=== PATIENT | female | born 1975 | race Caucasian/White ===

== ENCOUNTER 2019-10-03 07:28 | Outpatient (CLI) | payer OTHER, BC, SELFPAY ==
--- NOTE | ~2019-10-03 | MM_ITS ---
EXAMINATION: MM screening [facility] BI w himanshu HISTORY: Screening mammogram TECHNIQUE: Craniocaudal and mediolateral oblique 3-D tomosynthesis images were obtained and synthetic 2-D images were generated. CAD analysis was submitted and interpreted. COMPARISON: 09/21/2018, 09/08/2017, 09/01/2016 bilateral digital screening mammogram examinations BREAST PARENCHYMAL COMPOSITION: There are scattered areas of fibroglandular density. FINDINGS: There is no evidence of suspicious mass, calcification, or architectural distortion to sugg est malignancy in either breast. There has been no suspicious interval change. IMPRESSION: 1. No mammographic evidence of malignancy. 2. Recommend routine screening mammography in one year. BI-RADS Category 1: Negative Reviewed, dictated and finalized at location A.
== END 2019-10-03 07:29 | disposition home or self-care (01) ==
LOC: ANHIMG 07:31
PROVIDERS: PCP Internal Medicine; Visit Provider Nurse Practitioner
DX: Z12.31 Encounter for screening mammogram for malignant neoplasm of breast (principal)
CPT/HCPCS: 77063; 77067

== ENCOUNTER 2019-11-29 02:06 | Outpatient (CLI) | payer OTHER, BC, SELFPAY ==
[2019-11-29 18:25] LABS: SARS-CoV-2 RNA PCR Negative
== END 2019-11-29 02:07 | disposition home or self-care (01) ==
LOC: ANHCOVIDDT 02:06
PROVIDERS: PCP Internal Medicine; Visit Provider Orthopaedic Surgery
DX: Z01.812 Encounter for preprocedural laboratory examination (principal); Z20.828 Contact with and (suspected) exposure to other viral communicable diseases
CPT/HCPCS: 87635; C9803; U0003

== ENCOUNTER 2019-12-02 02:37 | Day surgery (SDC) | payer OTHER, BC, SELFPAY ==
[2019-11-20 10:14] VITALS: BMI 23.5
[2019-12-02 07:49] VITALS: BP 134/91; PULSE 92; RESP 16; TEMP 36.9; O2SAT 100
--- NOTE | 2019-12-02 08:18 | P.PNAN_ITS ---
Anes - Initial Pre Proc Eval Procedure: Operation Date: 12/02/19 09:30 Proposed Procedures p Right Ulnar Neurolysis with Transposition - Cleve Horta MD Date/Time: 12/02/19 08:18 Surgeon: Cleve Horta MD Pre Op Diagnosis: right ulnar neuritis Patient Data Age: 44 Gender: F Height: 1.63 m Weight: 63.8 kg Allergies Allergy/AdvReac Type Severity Reaction Status Date / Time codeine AdvReac Vomiting Verified 12/02/19 09:29 Home Medications Medication Instructions Recorded Confirmed Type cholecalciferol (vitamin D3) 125 5,000 unit PO DAILY 01/21/19 12/02/19 History mcg (5,000 unit) capsule mecobalamin (vitamin B12) 1,000 1,000 mcg SUBLINGUAL DAILY 01/21/19 12/02/19 History mcg disintegrating tablet,sublingual norethindrone acetate 1.5 1 tablet PO DAILY 01/21/19 12/02/19 History mg-ethinyl estradiol 30 mcg tablet cetirizine 10 mg tablet 10 mg PO DAILY 07/16/19 12/02/19 History ondansetron HCl [Zofran] 4 mg PO Q6H PRN #20 tablet 12/02/19 Rx tapentadol [Nucynta] 50 mg PO Q6H PRN #28 tablet 12/02/19 Rx Patient hx anesthesia problems: none Family hx anesthesia problems: none PMFSH Past Medical History Medical History (Updated 12/02/19 @ 08:18 by Singh Bahena MD) B12 deficiency BMI 22.0-22.9, adult Cubital tunnel syndrome on right Medial epicondylitis, left elbow Vitamin D deficiency, unspecified Surgical History Surgical History History of appendectomy 2012 History of carpal tunnel surgery Right-2018 With right cubital tunnel decompression History of cholecystectomy 2011 Family History Family History Mother Patient's mother is in good health Other Family history of cardiovascular disease Social History Social History Smoking status: Never smoker Second hand tobacco smoke exposure: No Alcohol intake: never Substance use: never Additional living arrangements comments: Additional occupation/education comments: [employer] Spiritual care concerns: No Anes - Eval Final PreProcedure Day of Procedure 12/02/19 08:18 Patient weight: normal Heart: regular rate and rhythm Lungs: clear to auscultation and normal air movement Airway: Mallampati scale class II Neurological: alert and oriented Last oral intake: >/= 8 hours ASA classification: II Emergent: no Anesthetic plan: proceed Anesthesia type and monitoring: general GIVS Informed Consent: The patient's anesthetic plan and its attendant risks and benefits were discussed with the patient/family/POA. Questions were solicited and answers provided to the satisfaction of the patient/family/POA.
[2019-12-02] MEDS: LACTATED RINGERS 1,000 ML 30 ML IV CONT ×2 (08:22→10:43)
[2019-12-02] MEDS: KETOROLAC 15 MG/ML VIAL (*BKC) IV PUSH (08:23)
[2019-12-02] MEDS: ACETAMINOPHEN 500 MG TABLET 1000 MG PO (08:23)
--- NOTE | 2019-12-02 08:57 | WPDHPUPDATE1 ---
History and Physical Update Update Date/Time: 12/02/19 08:57 History and Physical has been reviewed, including an updated exam of the patient. There are NO changes in the patient's condition. Risks, benefits, and alternatives have been discussed and questions answered. Patient agrees to proceed with procedure.
[2019-12-02] MEDS: ceFAZolin 2 GM/D5W 50 ML 2 GM/50 ML BAG IVPB (09:28)
[2019-12-02] MEDS: BUPIVACAINE/EPINEPHRINE 0.25% 50 ML VIAL 30 ML INFILTRATE (09:56)
[2019-12-02 10:43] VITALS: BP 102/65; PULSE 86; RESP 14; O2SAT 95
--- NOTE | 2019-12-02 10:59 | PM.PROC ---
Procedure Note - Detailed Date of procedure: 12/02/19 Pre-op diagnosis: right ulnar neuritis Post-op diagnosis: same Procedure performed: Right ulnar nerve transposition Description of procedure: The patient was identified in the proper site identified. She was taken to the operating room and transferred to the or table placing her supine taking care to pad her torso and extremities. A nonsterile tourniquet was placed high in the right arm which was then prepped and draped in the usual sterile fashion. After G IV S and placement of an LMA, the right upper extremity is exsanguinated and the tourniquet inflated to 200 mmHg remaining up for approximately 48 minutes. Utilizing the scar from the previous incision, an incision was made extending proximally and distally from the extent of the scar. Subcutaneous tissue was sharply dissected full thickness down to the fascia of the upper arm. The ulnar nerve was identified proximal to the area of scarring and then distally as well. It was gently dissected free from the scar tissue which was compressing it fairly significantly. It was freed up along its course taking care to avoid any tenting of the nerve as it lay in its transposed position. A sling was made using a portion of the tendon of the common flexor pronator origin and this was secured to the he is tissue anterior flap with two 2-0 Vicryl sutures in order to tack it in place. The elbow was taken through range of motion. There is no binding of the nerve in its transposed position or any tenting. The wound was irrigated with sterile antibiotic solution. The scar tissue over the cubital tunnel was gently reapproximated with two Vicryl suture. Subcutaneous tissue was reapproximated with four 0 Monocryl and then three 0 V lock was used to appose the skin edges along with tissue adhesive. Sterile dressing was applied. Tourniquet was released. A well-padded soft dressing was applied with the elbow in about a 90? of flexion and secured with an Fermin wrap. There were no known intraoperative complications. Estimated blood loss was negligible. She received perioperative antibiotics. Anesthesia: GLMA Surgeon: Cleve Horta MD Supervisor Hanging And Trimming: Blaise Estimated blood loss (mL): 3 Tourniquet time (min): 48 Packing: No Pathology: none sent Complications: No immediate complications Condition: stable Disposition: PACU
[2019-12-02] MEDS: fentaNYL CITRATE INJ (*CRX) 100 MCG/2 ML VIAL 25 MCG IV PUSH (11:07)
[2019-12-02 11:15] VITALS: BP 107/69; PULSE 79; O2SAT 96
[2019-12-02] MEDS: oxyCODONE HCL (*CRX) 5 MG TAB IR PO (11:30)
[2019-12-02 11:45] VITALS: BP 123/70; PULSE 74
== END 2019-12-02 12:08 | disposition home or self-care (01) ==
PROVIDERS: PCP Internal Medicine; Visit Provider Orthopaedic Surgery
PROC: (CPT 64718; principal; 2019-12-02 09:30)
DX: G56.21 Lesion of ulnar nerve, right upper limb (principal); E55.9 Vitamin D deficiency, unspecified
CPT/HCPCS: 64718; A4565; A9270; J0690; J1100; J1885; J2250; J2405; J2704; J3010; J7120

== ENCOUNTER 2020-10-05 08:15 | Outpatient (CLI) | payer OTHER, BC, SELFPAY ==
--- NOTE | ~2020-10-05 | MM_ITS ---
EXAMINATION: MM screening [facility] BI w himanshu HISTORY: Screening mammogram TECHNIQUE: Craniocaudal and mediolateral oblique 3-D tomosynthesis images were obtained and synthetic 2-D images were generated. CAD analysis was submitted and interpreted. COMPARISON: 10/03/2019, 09/21/2018, 09/08/2017 BREAST PARENCHYMAL COMPOSITION: There are scattered areas of fibroglandular density. FINDINGS: There is no evidence of suspicious mass, calcification, or architectural distortion to sugg est malignancy in either breast. There has been no suspicious interval change. IMPRESSION: 1. No mammographic evidence of malignancy. 2. Recommend routine screening mammography in one year. BI-RADS Category 1: Negative Reviewed, dictated and finalized at location A.
== END 2020-10-05 08:16 | disposition home or self-care (01) ==
LOC: ANHIMG 08:17
PROVIDERS: PCP Internal Medicine; Visit Provider Nurse Practitioner
DX: Z12.31 Encounter for screening mammogram for malignant neoplasm of breast (principal)
CPT/HCPCS: 77063; 77067

== ENCOUNTER → 2021-01-01 08:04 | Outpatient (CLI) | payer OTHER, BC, SELFPAY ==
--- NOTE | ~2021-01-01 | US_ITS ---
EXAMINATION: US pelvic complete EXAM DATE: 01/01/2021 08:34 INDICATION: Pelvic and perineal pain. TECHNIQUE: Pelvic transabdominal sonogram was performed. There are multiple grayscale and Doppler im ages available for interpretation. Comparison is made to prior examination from 07/26/2013. FINDINGS: Uterus measures 8.5 x 3.2 x 4.6 cm, and is morphologically normal. Endometrial stripe toney sures 4 mm, within normal limits. There is no free pelvic fluid. Right adnexa: The ovary measures 1.9 x 1.1 x 2.4 cm and is morphologically normal. Ovarian vascular f low confirmed. Left adnexa: The ovary measures 1.8 x 1.2 x 2.0 cm and is morphologically normal. Ovarian vascular fl ow confirmed. IMPRESSION: 1. Unremarkable pelvic ultrasound exam. Reviewed, dictated and finalized at location B. ING MACHINE OPERATOR
== END ==
PROVIDERS: Visit Provider Nurse Practitioner
DX: R10.2 Pelvic and perineal pain (principal)
CPT/HCPCS: 76856

== ENCOUNTER 2021-05-17 01:25 | Day surgery (SDC) | payer OTHER, BC, SELFPAY ==
[2021-05-06 15:55] VITALS: BMI 24.2
--- NOTE | 2021-05-06 16:08 | PC.NURSE ---
Report to the Outpatient Waiting Room, entrance under the green pavilion located off [facility], at time 0600 on date 05/17/21_. OR Time: 0730. - You and your visitor will be asked a series of questions to screen for COVID 19 for your protection. - A mask is required within the hospital. Preoperative COVID Testing Requirements: No COVID Test needed if: (proof is required; if not received patient will have Rapid Test prior to entry) - Patient has received COVID Vaccine at least 14 days prior to procedure date or - Patient has positive COVID test result within last 90 days of surgery date. COVID Test needed if above criteria is not met If not COVID vaccinated a COVID test must be conducted within 72 hours of surgery and patient is asked to isolate self from time of testing until procedure. You will go to the [facility] for your COVID testing. The [facility] is located at the corner of [address] [facility]. You will only be called if COVID results are positive and your surgeon may reschedule your elective surgery date. Patients may have clear liquids (water, carbonated beverages, clear teas, apple juice) until 3 hours prior to surgery with a maximum of 20 ounces. - No food from midnight until time of surgery - Infants may have breast milk until 4 hours before surgery, infant formula 6 hours prior to surgery. - Children will be allowed to drink immediately following surgery. If applicable, please bring a bottle or sippy cup to assist with drinking. Juice, water, soda, and popsicles are readily available. For infants on formula, please bring formula the day of surgery. Pacifiers are allowed. Take the following medications with a SIP of water the morning of surgery: zyrtec, estradiol Medications to discontinue per physician vitamins_ Date to take last dose 05/14/21 Please no make-up, nail sao tomean, hairspray, perfume, deodorant, or body powder the day of surgery. No jewelry (including any body piercings) or valuables the day of surgery, leave them at home. Please take a shower or bath the night before, or the morning of, surgery with an antibacterial soap. Wear comfortable, loose fitting clothing. Children are encouraged to wear pajamas. - Jewelry must be removed prior to entering the operating room. Rings and piercings that are not removed may be cut off. - The hospital will not accept responsibility for valuables. - Please leave all valuables, including medications, at home the day of surgery. If you are going home after surgery, a licensed driver/refuse collector must drive you home. - NO public transportation without another adult. - We recommend that an adult stay with you for 24 hours following discharge. - We also recommend that you do not drive, make important decision, drink alcoholic beverages, or take any drugs that were not prescribed by your health care provider for at least 24 hours after your discharge time. For Pediatric surgeries, we recommend two adults accompany the child home (only one inside the building at this time). One visitor will be allowed to accompany the patient into the hospital. Patients visitor will be instructed to remain with patient at all times or leave the building. We will allow the visitor to come back to the postoperative area when patient is ready. Follow any additional instructions given to you from your surgeon. Telephone instructions given to Odette Easton and asked if any additional questions and then verbalized understanding. Patient advised to call surgeon office or pre surgery nurse liaison [phone] if any additional questions.
[2021-05-17] VITALS (8 sets, daily range): BP systolic 105–140; BP diastolic 67–91; PULSE 84–97; RESP 12–16; TEMP 36.2–36.8; O2SAT 96–100; BMI 25.1
--- NOTE | 2021-05-17 07:49 | WPDANESEPPF ---
Anes - Initial Pre Proc Eval Procedure: Operation Date: 05/17/21 09:30 Proposed Procedures p Debridement Left Medial Epicondyle - Cleve Horta MD Date/Time: 05/17/21 07:49 Surgeon: Cleve Horta MD Pre Op Diagnosis: Lt Medial Epicondylitis Patient Data Age: 45 Gender: F Height: 1.63 m Weight: 66.5 kg Last Vital Signs Temp 36.8 C 05/17/21 07:44 Pulse 97 05/17/21 07:44 Resp 16 05/17/21 07:44 BP 140/91 H 05/17/21 07:44 Pulse Ox 100 05/17/21 07:44 Allergies Allergy/AdvReac Type Severity Reaction Status Date / Time codeine AdvReac Vomiting Verified 05/17/21 07:49 Home Medications Medication Instructions Recorded Confirmed Type norethindrone acetate 1.5 1 tablet PO DAILY 01/21/19 05/17/21 History mg-ethinyl estradiol 30 mcg tablet cetirizine 10 mg tablet 10 mg PO DAILY 07/16/19 05/17/21 History cyanocobalamin (vitamin B-12) 1,000 mcg IM MONTHLY #1 ea 01/12/21 05/17/21 Rx 1,000 mcg/mL injection kit ergocalciferol (vitamin D2) 1,250 50,000 unit PO .every 2 weeks #8 01/12/21 05/17/21 Rx mcg (50,000 unit) capsule cap Patient hx anesthesia problems: none Family hx anesthesia problems: none Results Review: All pre-operative results and documents have been reviewed as part of the pre-operative evaluation. [facility] Past Medical History Medical History B12 deficiency BMI 22.0-22.9, adult Medial epicondylitis, left elbow Vitamin D deficiency, unspecified Surgical History Surgical History Cubital tunnel syndrome on right right ulnar nerve transposition November 2019 History of appendectomy 2011 History of carpal tunnel surgery Right-2018 With right cubital tunnel decompression History of cholecystectomy 2011 Family History Family History Mother Patient's mother is in good health Other Family history of cardiovascular disease Social History Social History Smoking status: Never smoker Second hand tobacco smoke exposure: No Alcohol intake: never Alcohol use details: occasional Substance use: never Living arrangements: with family Additional living arrangements comments: Additional occupation/education comments: [employer] Spiritual care concerns: No Anes - Eval Final PreProcedure Day of Procedure 05/17/21 07:49 Patient weight: normal Lungs: clear to auscultation Airway: Mallampati scale class II Neurological: alert and oriented Last oral intake: >/= 8 hours ASA classification: I Emergent: no Anesthetic plan: proceed Anesthesia type and monitoring: general LMA and standard monitoring Results Review: All pre-operative results and documents have been reviewed as part of the pre-operative evaluation. Informed Consent: The patient's anesthetic plan and its attendant risks and benefits were discussed with the patient/family/POA. Questions were solicited and answers provided to the satisfaction of the patient/family/POA.
[2021-05-17] MEDS: KETOROLAC 15 MG/ML VIAL (*BKC) IV PUSH (08:02)
[2021-05-17] MEDS: ACETAMINOPHEN 500 MG TABLET 1000 MG PO (08:02)
[2021-05-17] MEDS: LACTATED RINGERS 1,000 ML 30 ML IV CONT (08:02)
--- NOTE | 2021-05-17 08:25 | WPDHPUPDATE1 ---
History and Physical Update Update Date/Time: 05/17/21 08:25 History and Physical has been reviewed, including an updated exam of the patient. There are NO changes in the patient's condition. Risks, benefits, and alternatives have been discussed and questions answered. Patient agrees to proceed with procedure.
[2021-05-17] MEDS: ceFAZolin 2 GM/D5W 50 ML 2 GM/50 ML BAG IVPB (08:32)
--- NOTE | 2021-05-17 09:38 | P.OP_ITS ---
Procedure Note - Detailed Date of Procedure 05/17/21 Pre-op Diagnosis Lt Medial Epicondylitis Post-op Diagnosis Same Procedure Performed Debridement left medial epicondyle Surgeon Cleve Horta MD Ironworker Machine Operator Zulma Anesthesia General Description of Procedure The patient was identified and proper site identified. She was taken back to the operating room, transferred to the OR table placing her supine taking care to pad her torso and extremities. After general anesthetic induction and intubation, a nonsterile tourniquet was placed high in the left arm. Left upper extremity was prepped and draped in usual sterile fashion. Several cc of 0.25% Marcaine and epinephrine solution was injected into the subcutaneous tissue over the left medial epicondylar region while protecting the ulnar nerve. The extremity was exsanguinated tourniquet was inflated to 250 millimeters of mercury remaining up for approximally 19 minutes. Longitudinal incision was made over the medial epicondyle in line with the tendinous origin. Subcutaneous tissue was bluntly dissected down to the tendinous origin which was released off of the epicondyle. Within the common flexor pronator origin there was tendinous tear a stearns. This was debrided back to healthier tendon and the medial upper condyle cleared of any remaining soft tissue attachment. Wound was irrigated with sterile saline. The released tendon was tacked back down with 4-0 Monocryl suture. Skin was reapproximated with 3-0 V lock and tissue adhesive. Sterile dressing was applied. Tourniquet was released. She tolerated the procedure well. She was awakened, extubated and taken to recovery area in stable condition. There were no known intraoperative complications. Estimated blood loss negligible. She received perioperative antibiotics. Estimated Blood Loss 1 Tourniquet Time 19 Drains No Packing No Pathology None sent Complications No immediate complications Condition Stable Disposition PACU
== END 2021-05-17 11:00 | disposition home or self-care (01) ==
PROVIDERS: PCP Internal Medicine; Visit Provider Orthopaedic Surgery
PROC: (CPT 24110; principal; 2021-05-17 09:30)
DX: M77.02 Medial epicondylitis, left elbow (principal); E55.9 Vitamin D deficiency, unspecified; E53.8 Deficiency of other specified B group vitamins
CPT/HCPCS: 24359; A9270; J0690; J1100; J1885; J2250; J2405; J2704; J3010; J7120

== ENCOUNTER 2021-11-11 07:44 | Outpatient (CLI) | payer OTHER, BC, SELFPAY ==
--- NOTE | ~2021-11-11 | MM_ITS ---
EXAMINATION: MM screening [facility] BI w himanshu HISTORY: Screening mammogram TECHNIQUE: Craniocaudal and mediolateral oblique 3-D tomosynthesis images were obtained and synthetic 2-D images were generated. CAD analysis was submitted and interpreted. COMPARISON: 10/05/2020, 10/03/2019, 09/21/2018 bilateral screening mammogram examinations BREAST PARENCHYMAL COMPOSITION: There are scattered areas of fibroglandular density. FINDINGS: There is no evidence of suspicious mass, calcification, or architectural distortion to sugg est malignancy in either breast. There has been no suspicious interval change. IMPRESSION: 1. No mammographic evidence of malignancy. 2. Recommend routine screening mammography in one year. BI-RADS Category 1: Negative Reviewed, dictated and finalized at location A.
== END 2021-11-11 07:45 | disposition home or self-care (01) ==
PROVIDERS: PCP Internal Medicine; Visit Provider Nurse Practitioner
DX: Z12.31 Encounter for screening mammogram for malignant neoplasm of breast (principal)
CPT/HCPCS: 77063; 77067

== ENCOUNTER 2021-12-07 09:39 | Outpatient (CLI) | payer OTHER, BC, SELFPAY ==
--- NOTE | ~2021-12-07 | XR_ITS ---
EXAMINATION: XR lumbar spine 6V w bending DATE: 12/07/2021 10:02 INDICATION: Bilateral low back pain. TECHNIQUE: 7 views of lumbar spine including flexion and extension views were obtained. COMPARISON: None. FINDINGS: There is 5 degrees dextrocurvature of lumbar spine. The spine is hypomobile with flexion an d extension. Vertebral body heights and intervertebral disc heights are normal. The facet joints are normal. Surgical clips in the right upper quadrant are likely from cholecystectomy. IMPRESSION: 1. No etiology for the patient's symptoms. Reviewed, dictated and finalized at location A.
== END 2021-12-07 09:40 | disposition home or self-care (01) ==
PROVIDERS: PCP Internal Medicine; Visit Provider Physician Assistant
DX: M54.50 Low back pain, unspecified (principal)
CPT/HCPCS: 72114

== ENCOUNTER 2022-02-18 11:59 | Emergency (ER) | payer OTHER, BC, SELFPAY ==
--- NOTE | ~2022-02-18 | XR_ITS ---
EXAMINATION: XR chest 2V DATE: 02/18/2022 12:56 INDICATION: Dizziness. TECHNIQUE: Frontal and lateral views of the chest were obtained. COMPARISON: Chest 2 views 02/17/2015 FINDINGS: The chest demonstrates clear lungs without pneumonia, pleural effusion, or pneumothorax. Th e heart size is normal. Surgical clips in the right upper quadrant are likely from cholecystectomy. IMPRESSION: 1. No acute cardiopulmonary disease. Reviewed, dictated and finalized at location A. CH AND LANGUAGE ASSISTANT
[2022-02-18 12:05] VITALS: BP 152/90; PULSE 108; RESP 16; TEMP 36.6; O2SAT 100
--- NOTE | 2022-02-18 12:05 | ED.GENADULT ---
HPI - General Adult General Chief complaint: Dizziness Stated complaint: LIGHT HEADED Time Seen by Provider: 02/18/22 12:05 Source: patient Mode of arrival: ambulatory Limitations: no limitations History of Present Illness HPI narrative: 46-year-old female presents with complaint of intermittent lightheadedness starting this a.m.. Reports that she woke up feeling fine. 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 States that she was having some flashes with a little bit of nausea. Reports she had COVID 2 weeks ago. All symptoms resolved. Denies chest pain and shortness of breath. Denies . Denies urinary symptoms. Having normal bowel movements. All systems reviewed and negative except as noted above. Related Data Home Medications Medication Instructions Recorded Confirmed norethindrone acetate 1.5 1 tablet PO DAILY 01/21/19 12/12/21 mg-ethinyl estradiol 30 mcg tablet (Microgestin) cetirizine 10 mg tablet 10 mg PO DAILY 07/16/19 12/12/21 Allergies Allergy/AdvReac Type Severity Reaction Status Date / Time codeine AdvReac Vomiting Verified 12/07/21 08:56 Review of Systems Review of Systems: CONSTITUTIONAL: Denies fever, chills, or sweats. EYES: Denies visual changes, redness, or discharge. ENT: Denies rhinorrhea, congestion, sore throat, or otalgia. CARDIOVASCULAR: Denies chest pain, palpitations, or edema. RESPIRATORY: Denies cough or dyspnea. GASTROINTESTINAL: Denies abdominal pain, nausea, vomiting, or diarrhea. GENITOURINARY: Denies dysuria or hematuria. SKIN: Denies rash or itching. MUSCULOSKELETAL: Denies back pain, joint pain, or myalgia. NEUROLOGIC: Denies headache, numbness, or weakness. Reports feeling lightheaded. PSYCHIATRIC: Denies anxiety or depression. All other systems reviewed are negative, except as documented in HPI. [facility] Past Medical History Medical History B12 deficiency BMI 22.0-22.9, adult Vitamin D deficiency, unspecified Surgical History Surgical History Cubital tunnel syndrome on right right ulnar nerve transposition November 2019 History of appendectomy 2011 History of carpal tunnel surgery Right-2018 With right cubital tunnel decompression History of cholecystectomy 2012 Medial epicondylitis, left elbow Surgical debridement May 17, 2021 Family History Family History Mother Patient's mother is in good health Other Family history of cardiovascular disease Social History Social History Smoking status: Never smoker Second hand tobacco smoke exposure: No Alcohol intake: never Alcohol use details: occasional Substance use: never Lack of Transportation: No Lack of Food: Never True Current Housing: I Have Housing Concerned About Future Housing: No Difficulty Paying Gas/Electric Bills: No Difficulty Paying for Meds: No Currently Unemployed: No Education: High School Diploma/GED Difficulty w/ Childcare or Family Care: No Additional living arrangements comments: Additional occupation/education comments: [employer] Spiritual care concerns: No Comments At time of signature, agree with nursing past medical, surgical, social and family history. There is no relevant family history pertinent to the presenting complaint. Exam Narrative: GENERAL: This is a well-nourished, well-developed patient, in no apparent distress. HEAD: normocephalic, atraumatic. EYES: PERRL. Sclera clear/white. Vision is grossly intact. EARS: External ears normal, auditory canals clear and without drainage, TMs normal without perforation. Hearing grossly intact. NOSE: External nose normal with no obvious nasal discharge, nares without redness, no rhinorrhea. THROAT: Muc
--- NOTE | 2022-02-18 12:21 | ECG_ITS ---
Measurements Intervals [place] Rate: 106 P: 36 NV: 154 QRS: 53 QRSD: 85 T: 27 QT: 350 QTc: 466 Interpretive Statements SINUS TACHYCARDIA BORDERLINE ST-T WAVE ABNORMALITY- INFERIOR LEADS ABNORMAL ECG NO PREVIOUS ECG AVAILABLE FOR COMPARISON Electronically Signed On 02-18-2022 12:49:34 BLOOD BANK SUPERVISOR by Roberto Xiong D.O.
[2022-02-18 12:35] LABS: Glucose Point of Care 83 mg/dl (65-105)
[2022-02-18 12:40] VITALS: BP 141/92; PULSE 107
[2022-02-18 12:41] VITALS: BP 147/90; PULSE 107
[2022-02-18 12:42] VITALS: BP 151/96; PULSE 107
== END 2022-02-18 13:17 | disposition home or self-care (01) ==
PROVIDERS: Emergency Provider Nurse Practitioner Family; PCP Internal Medicine
DX: R03.0 Elevated blood-pressure reading, without diagnosis of hypertension (principal); R42 Dizziness and giddiness; R94.31 Abnormal electrocardiogram [ECG] [EKG]
CPT/HCPCS: 71046; 82948; 93005; 99213; G0463

== ENCOUNTER 2023-03-06 12:03 | Outpatient (CLI) | payer OTHER, BC, SELFPAY ==
--- NOTE | ~2023-03-06 | MM_ITS ---
EXAMINATION: MM screening [facility] BI w himanshu HISTORY: Screening mammogram TECHNIQUE: Craniocaudal and mediolateral oblique 3-D tomosynthesis images were obtained and synthetic 2-D images were generated. CAD analysis was submitted and interpreted. COMPARISON: 11/11/2021, 10/05/2020, 10/03/2019 BREAST PARENCHYMAL COMPOSITION:Not Dense. There are scattered areas of fibroglandular density. FINDINGS: No suspicious mass, calcification, or architectural distortion are identified in either conrado ast to suggest malignancy. There has been no suspicious interval change. IMPRESSION: No mammographic evidence of malignancy. Recommend routine screening mammography in one year. BI-RADS Category 1: Negative Reviewed, dictated and finalized at location . D SERVICES ARCHITECT
== END 2023-03-06 12:04 | disposition home or self-care (01) ==
LOC: ANHIMG 12:04
PROVIDERS: PCP Internal Medicine; Visit Provider Obstetrics & Gynecology Gynecology
DX: Z12.31 Encounter for screening mammogram for malignant neoplasm of breast (principal)
CPT/HCPCS: 77063; 77067

== ENCOUNTER 2024-08-20 08:03 | Outpatient (CLI) | payer OTHER, BC, SELFPAY ==
--- NOTE | ~2024-08-20 | MM_ITS ---
EXAMINATION: MM screening carlos BI w himanshu HISTORY: Screening TECHNIQUE: Craniocaudal and mediolateral oblique 3-D tomosynthesis images were obtained and synthetic 2-D images were generated. CAD analysis was submitted and interpreted. COMPARISON: Comparison to multiple prior studies sequentially, with oldest reviewed study dated 09/08. BREAST PARENCHYMAL COMPOSITION: Not dense: There are scattered areas of fibroglandular density. FINDINGS: There is no evidence of suspicious mass, calcification, or architectural distortion to sugg est malignancy in either breast. There has been no suspicious interval change. IMPRESSION: 1. No mammographic evidence of malignancy. 2. Recommend routine screening mammography in one year. BI-RADS Category 1: Negative Reviewed, dictated and finalized at location A.
--- OUTSIDE RECORDS SUMMARY | 2024-08-20 08:07 | XMS_ITS | Clinical Summary ---
Author Organization [facility] [address] Address [address] [place] [address] Phone Care Team Providers Care Scale Shooter Name Role Phone CruzBertha BETTY Primary Care Provider [phone] Allergies Active Allergy Reactions Criticality Noted Date Comments Codeine Nausea And Vomiting 11/02/2022 Medications norethindrone ac-eth estradiol (MICROGESTIN 1.5, ,) 1.5-30 mg-mcg tablet take 1 tablet by oral route every day 0 0 11/05/19 14 Active cholecalciferol (Vitamin D3) 5,000 unit tabletIndications: Vitamin D deficiency Take 1 tablet (5,000 Units total) by mouth daily 90 tablet 09/12/19 24 025 Active propranoloL (INDERAL) 10 mg tablet Take 2 tablets (20 mg total) by mouth nightly 11/06/19 24 Active cyanocobalamin (Vitamin B-12) 1,000 mcg/mL injectionIndicatio ns:Vitamin B12 deficiency Inject 1 mL (1,000 mcg total) into the muscle as instructed every 30 (thirty) days 3 mL 3 11/08/19 [address] (VOLTAREN) 75 mg EC tabletIndications: Chronic nonintractable headache, unspecified headache type Take 1 tablet (75 mg total) by mouth 2 (two) times a day 180 tablet 3 11/08/19 24 025 Active ergocalciferol (VITAMIN D) 50,000 unit capsuleIndications :Vitamin D deficiency Take 1 capsule (50,000 Units total) by mouth every 14 (fourteen) days 6 capsule 3 11/08/19 24 025 Active atorvastatin (LIPITOR) 10 mg tabletIndications: Mixed hyperlipidemia Take 1 tablet (10 mg total) by mouth daily 90 tablet 11/10/19 24 025 Active Additional Information Patient not taking.Reported on 05/16/2024 liothyronine (CYTOMEL) 25 mcg tablet Take 1 tablet (25 mcg total) by mouth daily Active Active Problems Problem Noted Date Diagnosed Date Encounter for screening mamm ogram for malignant neoplasm of breast 05/16/2024 Assessment & Plan (05/16/2024 5:01 PM CDT): -Patient due for mammography, will send referral at this time Thyroid condition 05/16/2024 Assessment & Plan (05/16/2024 5:01 PM CDT): -Patient previously on T3 for unknown thyroid condition prescribed at [facility] -Will order thyroid cascade at this time and prescribed medications as appropriate -Mild painless thyromegaly also noted on examination as such will send for thyroid ultrasound and follow up with on results Essential tremor 11/08/2023 Assessment & Plan (11/08/2023 5:00 PM CDT): Follows with neurology Continue Propranolol 20 mg nightly Dystonia 10/18/2023 Cervical radiculopathy 04/11/2023 Thyroid nodule 05/27/2014 Gastroesophageal reflux disease 05/02/2011 Resolved Problems Problem Noted Date Diagnosed Date Resolved Date Positive VERONICA (antinuclear antibody) 05/10/2018 11/08/2023 Assessment & Plan (05/10/2018 3:39 PM CDT): 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 She complains of chronic fatigue, otherwise denies systemic symptoms concerning for any CTD or inflammatory arthritis - low suspicion for either at present. Will recheck serologies today, pt will be called with results. Follow up as needed should symptoms develop. Allergic rhinitis 05/02/2011 11/08/2023 Encounters Date Type Department Care Team Description 05/21/2024 Results Follow-Up [facility] [address] [place] [address] Britt Masterson MD Thyroid Function [place] from Last 3 Months Immunizations Immunization Administration Dates Next Due Influenza, Quadrivalent, Amparo l Culture-based MDCK, Antibiotic Free, Intramuscular 11/22/2018 Influenza, Quadrivalent, Spl it, Intramuscular 11/12/2015 Influenza, Quadrivalent, Spl it, Preservative Free, Intramuscular 11/02/2017,11/17/2016 Influenza, Trivalent, IM (MDV) 12/06/2012 Influenza, Unspecified 11/08/2023(Deferr ed: Patient Refused),11/13/2022(Deferred: Patient Refused) Surgical History Surgery Date Site/Laterality Comments CHOLECYSTECTOMY gall bladder removal APPENDECTOMY 2010 Appendectomy ELBOW SURGERY Medical History Medical History Date Comments Tremor Positive VERONICA (antinuclear antibody) 05/10/2018 Family History Medical History Relation Name Comments Atrial fibrillation Father COPD Father Heart disease Father Heart disease; Arthritis Mother Arthritis; Cancer Other Cancer, unknown ; Relation Name Status Comments Father Alive Mother Alive Other Social History Tobacco Use Types Packs/Day Years Used Date Smoking Tobacco: Never Smokeless Tobacco: Never Tobacco Cessation:Counseling Given: Not Answered Alcohol Use Standard Drinks/Week Comments Yes 0 (1 standard drink = 0.6 oz pur e alcohol) AUDIT-C Answer Date Recorded Q1: How often do you have a drink containing alc ohol? 2-4 times a month 05/16/2024 Q2: How many drinks containi ng alcohol do you have on a typical day when you are drinking? 1 or 2 05/16/2024 Q3: How often do you have si x or more drinks on one occasion? 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 Gender Identity Not on file Sexual Orientation Not on file Obstetrics History Last Filed Vital Signs Vital Sign Reading Time Taken Comments Blood Pressure 128/76 05/16/2024 2:06 PM CDT Pulse 95 05/16/2024 2:06 PM CDT Temperature 36.8 C (98.3 F) 11/08/2023 4:35 PM CDT Respiratory Rate 18 05/16/2024 2:06 PM CDT Oxygen Saturation 97% 05/16/2024 2:06 PM CDT Inhaled Oxygen Concentration - - Weight 69.5 kg (153 lb 3.2 oz) 05/16/2024 2:06 P M CDT Height 165.1 cm (5' 5) 05/16/2024 2:06 PM CDT Body Mass Index 25.49 05/16/2024 2:06 PM CDT Plan of Treatment Health Maintenance Due Date Last Done Comments Breast Cancer Screening-Mammogram 1975 Cervical Cancer Screening 1975 Colon Cancer Screening-DNA Stool 1975 DTaP/Tdap/Td Vaccine (1 - Tdap) 07/05/1986 Regular Well Visit/Exam 18-64 07/05/1993 Influenza Vaccine (Season Ended) 2024 11/22/2018, 11/02/2017, 11/17/2016, Additional history exists Depression Screening 05/16/2025 05/16/2024, 11/08/19 24 Hepatitis C Screening Completed 11/04/2013 Hepatitis B Screening Completed 11/09/2023 Pneumococcal vaccine <65 Aged Out No longer eligible based on patient's age to complete this topic Procedures Procedure Name Priority Date/Time Associated Diagnosis Comments SERUM HEPATITIS C AB Routine 11/04/2013 2:03 PM CDT from Last 3 Months or Most Recently Relevant to Health Maintenance Results * Serum Hepatitis C ab (11/04/2013 2:03 PM CDT) HCV ab Non-Reacti ve Non-Reacti ve HISTORICAL RESULTS Serum 11/04/2013 2:03 PM CDT us Neema Allan MD LAB BLOOD ORDERABLES Final Resul t HISTORICAL RESULTS from Last 3 Months or Most Recently Relevant to Health Maintenance Insurance ANTH TRADITIONAL Member Subscriber Plan / Payer (Ef fective 2012-Present) Name:Gabriela Eastonie Cheo Relation to Subscriber:Self Name:Odette Easton Cheo Payer ID:[id number] (NAIC) Group ID:[id number] Type:documistic Address: [address] CHOICE PLUS [facility] TRADITIONAL [facility] [place] Care Teams Scale Shooter Relationship Specialty Start Date End [place] [address] PCP - General Family Medicine 11/08/23
--- OUTSIDE RECORDS SUMMARY | 2024-08-20 08:07 | XMS_ITS | Clinical Summary ---
Author Organization [facility] Address [address] [place] [address] Care Team Providers Care Seater Assembler Name Role Phone Rod Rubio MD Primary Care Provider [phone] Allergies Active Allergy Reactions Criticality Noted Date Comments Codeine Nausea and Vomiting 11/02/2022 Medications vitamin D2, ergocalciferol, (DRISDOL) 1.25 mg capsule TAKE ONE CAPSULE BY MOUTH EVERY 2 WEEKS 09/21/2022 Active SATHISH 1.5/30 1.5-30 MG-MCG tablet Take 1 tablet by mouth daily. 10/21/2022 Active vitamin B-1 100 MG tabletIndication s:Vitamin B1 deficiency Take 1 tablet (100 mg total) by mouth daily. 30 tablet 6 03/15/2023 Active diclofenac EC (VOLTAREN) 75 MG tablet TAKE 1 TABLET BY MOUTH TWICE DAILY WITH MEALS NEEDED FOR PAIN 03/15/2023 Active Vitamin D, Ergocalciferol, 36221 units CapIndications:N umbness and tingling of both upper extremities Take 50,000 Units by mouth every 14 (fourteen) days. 4 capsule 10/18/2023 Active cyanocobalamin (B-12) 1000 MCG/ML injectionIndicat ions:Numbness and tingling of both upper extremities Inject 1 mL (1,000 mcg total) into the muscle every 30 (thirty) days. 1 mL 11 02/16/2024 Active propranolol (INDERAL) 20 MG tabletIndication s:Tremor Take 1 tablet (20 mg total) by mouth 2 (two) times daily. 180 tablet 3 03/21/2024 03/21/19 26 Active Active Problems Problem Noted Date Diagnosed Date Essential tremor 11/08/2023 Dystonia 10/18/2023 Cervical radiculopathy 04/11/2023 Thyroid nodule 05/27/2014 Gastroesophageal reflux disease 05/02/2011 Encounters Date Type Department Care Team Description 07/15/2024 Telephone [facility] [address], [address] [place] [phone] Rod Rubio MD Appointment Request from Last 3 Months Family History Medical History Relation Comments Atrial fibrillation Father COPD Father No Known Problems Mother Relation Status Comments Brother Alive Father Alive Mother Alive Sister Alive Social History Tobacco Use Types Packs/Day Years Used Date Smoking Tobacco: Never Passive Smoke Exposure: Never Smokeless Tobacco: Never Tobacco Cessation:Counseling Given: Yes Alcohol Use Standard Drinks/Week Comments Yes 0 (1 standard drink = 0.6 oz pur e alcohol) Less than once a month PHQ-2 Answer Date Recorded Patient Health Questionnaire-2 Score 0 03/21/2024 Comments No Sex and Gender Information Value Date Recorded Sex Assigned at Not on file Legal Sex Female 3:36 PM CDT Gender Identity Not on file Sexual Orientation Not on file Last Filed Vital Signs Vital Sign Reading Time Taken Comments Blood Pressure 116/80 04/25/2024 10:26 AM CDT Pulse 84 04/25/2024 10:26 AM CDT Temperature 36.9 C (98.5 F) 04/25/2024 10:26 AM CDT Respiratory Rate 16 04/25/2024 10:26 AM CDT Oxygen Saturation 100% 04/25/2024 10:26 AM CDT Inhaled Oxygen Concentration - - Weight 69.4 kg (153 lb) 04/25/2024 10:26 AM CDT Height 162.6 cm (5' 4) 04/25/2024 10:26 AM CDT Body Mass Index 26.26 04/25/2024 10:26 AM CDT Plan of Treatment Upcoming Encounters Date Type Department Care Team (Late st Contact Info) Description 10/08/2024 10:20 AM CDT Office Visit [facility] [place] - [address], [address] [place] [phone] Karyn Harper MD [address] [place] [address] 03/21/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 Office Visit [facility] Medical [facility] Multispecialty Care - [facility] [address] [facility], [address] [place] [phone] Karyn Harper MD [address] [place] [address] Health Maintenance Due Date Last Done Comments Cervical Cancer Screening Pa p Smear (Age 30 to 64) Every 3 Years 1975 Colorectal Cancer Screening Colonoscopy (10 Years) 1975 Annual Physical 07/05/1978 DTaP, Tdap and Td Vaccines ( 1 - Tdap) 07/05/1994 Hepatitis B Vaccines (1 of 3 - 19+ 3-dose series) 07/05/1994 Cervical Cancer Screening Pa p with HPV Testing (Age 30 to 64) Every 5 Years 07/05/2005 Cervical Cancer Screening wi th HPV 07/05/2005 Mammogram Screening 2015 COVID-19 Vaccine (2023-2 5 season) 2023 03/20/2020, 02/28/2020 Hepatitis C Completed 11/09/2023, 11/09/2023 PHQ-2 (Physician [place]) Completed 03/21/2024 Meningococcal B Vaccine Aged Out No l onger eligible based on patient's age to complete this topic Meningococcal Vaccine Aged Out No jennifer jonelle eligible based on patient's age to complete this topic Pneumococcal Vaccine: Pediatrics (0 to 5 Years) and At-Risk Patients (6 to 49 Years) Aged Out No longer eligible b ased on patient's age to complete this topic RSV Immunizations Under 20 Months Aged Out No longer eligible b ased on patient's age to complete this topic Insurance [employer] Care Teams Seater Assembler Relationship Specialty Start Date End Date Rod Rubio MD [address] [place] [address] PCP - General 07/14/24
--- OUTSIDE RECORDS SUMMARY | 2024-08-20 08:07 | XMS_ITS | Clinical Summary ---
Author Organization [facility] Address [address] [place] [address] Care Team Providers Care Extrusion Press Adjuster Name Role Phone MaulikGutierrezMookie L DO Primary Care Provider Source Comments [facility],non-[facility] Affiliates and Associated Physician Practices is amultiple site organization consisting of ambulatory clinics and hospital sitesin [place], [place], [place]. This disclosure is being madepursuant to the Care Everywhere program and may not contain all information available regarding this patient. Last updated 17.[facility] Social History Tobacco Use Types Packs/Day Years Used Date Smoking Tobacco: Never Assessed Comments Unknown Sex and Gender Information Value Date Recorded Sex Assigned at Not on file Legal Sex Female 2:30 PM CDT Gender Identity Not on file Sexual Orientation Not on file Plan of Treatment Health Maintenance Due Date Last Done Comments COLOGUARD (AGES 45-75) - COL ON CA SCREENING 1975 COLON MONITORING 1975 COLONOSCOPY - COLON CA SCREENING 1975 CT COLONOGRAPHY - COLON CA SCREENING 1975 Colorectal Cancer Screening 1975 FIT - COLON CA SCREENING 1975 FLEX SIG - COLON CA SCREENING 1975 LIPID TESTING 1975 MAMMOGRAM 1975 HIV SCREENING 07/05/1990 HEPATITIS C SCREENING 07/01/1993 DTAP/TDAP/TD VACCINES (1 - Tdap) 07/05/1994 HEPATITIS B VACCINE (1 of 3 - 19+ 3-dose series) 07/05/1994 COVID-19 VACCINE ( - 2023-2 5 season) 2023 DEPRESSION SCREENING 02/14/2024 INFLUENZA VACCINE (Season Ended) 2024 ZOSTER VACCINE (1 of 2) 07/05/2025 HIB VACCINE Aged Out No longer eligi ble based on patient's age to complete this topic HPV VACCINE Aged Out No longer eligi ble based on patient's age to complete this topic MENINGOCOCCAL (Group B) VACC INE SHARED DECISION-MAKING Aged Out No longer eligibl e based on patient's age to complete this topic MENINGOCOCCAL GROUPS A/C/Y/W VACCINE Aged Out No longer eligible b ased on patient's age to complete this topic Insurance [facility] Care Teams Extrusion Press Adjuster Relationship Specialty Start Date End Date Mookie Willingham DO [address] [facility] [facility] [address] [place] [address] PCP - General Internal Medicine 11/04/13
--- OUTSIDE RECORDS SUMMARY | 2024-08-20 08:07 | XMS_ITS | Referral Summary ---
Author Organization [facility] [address] Address [address] [place] [address] Phone Care Team Providers Care Medical Staff Credentialing Coordinator Name Role Phone Bertha Cruz BETTY Primary Care Provider [phone] Encounters Date Type Department Care Team Description 05/21/2024 Results Follow-Up [facility] [address] [place] [id number] Britt Masterson MD Thyroid Function [place] from Last 3 Months Allergies Active Allergy Reactions Criticality Noted Date Comments Codeine Nausea And Vomiting 11/02/2022 Medications norethindrone ac-eth estradiol (MICROGESTIN .5, ,) 1.5-30 mg-mcg tablet take 1 tablet [...] T3 for unknown thyroid condition prescribed at [facility] -Will order thyroid cascade at this time [...] should symptoms develop. 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
== END 2024-08-20 08:04 | disposition home or self-care (01) ==
PROVIDERS: PCP Internal Medicine; Visit Provider Nurse Practitioner
DX: Z12.31 Encounter for screening mammogram for malignant neoplasm of breast (principal)
CPT/HCPCS: 77063; 77067